=== PATIENT | female | born 1990 | race African-American/Black ===

== ENCOUNTER 2017-01-20 11:55 | Emergency (ER) | payer OTHER ==
--- NOTE | ~2017-01-20 | US106 ---
[facility] A Service of [facility] RADIOLOGY TEXT RESULTS PATIENT: GERONIMO WAN LOCATION: [facility] : [birth year] UNIT #: [id number] AGE: [address]: Kerrie Bustamante SEX: F ORDER DR: [id number] [facility] [address] [place], [place] [address] [id number] E MR#: [id number] Acc #: [id number] NAME: GERONIMO WAN : 1990 SEX: F STUDY DATE/TIME: 01/20/2017 14:52 UNIT: [facility] ROOM: STUDY DESCRIPTION: US Preg Uterus Transvaginal Attending Physician: Kerrie Bustamante P.A.-C. Ordering Physician: Kerrie Bustamante P.A.-C. Primary Care Physician: [facility] MEDICAL IMAGING REPORT This report is preliminary unless electronic signature is present EXAM Pelvic ultrasound, 01/20 HISTORY The patient is cramping with light spotting for the last four days. Positive test with beta hCG value of 1,326 mIU per mL. FINDINGS Transvaginal imaging was performed of the pelvis in multiple planes. No comparison. The endometrial stripe measures 12.0 mm. There is a tiny cystic lesion within it. This could reflect extremely early gestational sac. No yolk sac or pole identified. Both ovaries show perfusion by Doppler. Complex 1.5 cm lesion on the left ovary may reflect a corpus luteum. Bilateral ovarian follicles are present. IMPRESSION There is a tiny cystic lesion in the endometrial canal. It is unclear if this is a tiny gestational sac or not. It contains no yolk sac or pole. Mean sac diameter measurements would suggest a gestational age of 5 weeks if this is in fact a gestational sac. Both ovaries show perfusion by Doppler. Complex lesion on the left ovary could reflect a corpus luteum. No free fluid is seen. Dedicated obstetrical follow-up is recommended. Dictated by... Abilio Cardenas Jr., M.D. THIS IS AN ELECTRONICALLY VERIFIED REPORT Abilio Cardenas Jr., M.D. at 01/20/2017 8:49 PM CARLOS A/fam TD: 01/20/2017 16:19 [facility] A Service of [facility] RADIOLOGY TEXT RESULTS PATIENT: GERONIMO WAN LOCATION: [facility] #: [id number] : [birth year] UNIT #: [id number] AGE: [address]: Kerrie Bustamante SEX: F ORDER DR: RAMONE #: [id number] MEDICAL IMAGING REPORT Page 1 of 1 COPY
[~2017-01-20 11:55] MED LIST: ALBUTEROL17 GM; CODIENE; ROBITUSSIN
[2017-01-20 13:27] LABS: URINE SOURCE CLEAN CATCH
[2017-01-20 13:37] LABS: URINE APPEARANCE CLOUDY; URINE BILIRUBIN NEG (NEG); URINE BLOOD 3+ (NEG); URINE COLOR YELLOW; URINE GLUCOSE NEG (NEG); URINE KETONE NEG (NEG); URINE LEUKOCYTE ESTERASE 1+ (NEG); URINE NITRATE NEG (NEG); URINE PH 5.5 (5-8); URINE PROTEIN NEG (NEG); URINE SPECIFIC GRAVITY 1.024 (1.003-1.035); URINE UROBILINOGEN 0.2 MG/DL (NEG)
[2017-01-20 13:39] LABS: CULTURE INDICATED? YES; URINE BACTERIA AUWI 1+ (NEGATIVE); URINE SQUAMOUS EPITHELIAL CELL FEW /[HPF]
[2017-01-20 14:03] LABS: BASOPHIL# 0.1 X10e3 (0-0.3); BASOPHIL% 1.3 % (0-2.5); EOSINOPHIL% 0.7 % (0.0-7.0); HEMATOCRIT 35.1 % (35.0-45.0); HEMOGLOBIN 11.4 gm/dL (12.0-16.0); LYMPHOCYTE# 2.1 X10e3 (1.0-3.5); LYMPHOCYTE% 34.5 % (17.0-45.0); MEAN CELL VOLUME 93.8 FL (83-96); MEAN CORPUSCULAR HEMOGLOBIN 30.4 PG (28-34); MEAN CORPUSCULAR HGB CONC 32.4 g/dL (30-36); MEAN PLATELET VOLUME 7.5 FL (6.5-11.5); MONOCYTE# 0.5 X10e3 (0-1.0); MONOCYTE% 8.9 % (3.0-12.0); NEUTROPHIL# 3.3 X10e3 (1.5-7.1); NEUTROPHIL% 54.6 % (40-75); PLATELET COUNT 306 X10e3 (140-420); RED BLOOD COUNT 3.74 X10e (3.90-5.30)
[2017-01-20 14:06] LABS: DIFF IND NO
[2017-01-23 15:44] LABS: CHLAMYDIA TRACH Not Detected (Not Detected); N GONOR Not Detected (Not Detected)
== END 2017-01-20 16:06 | disposition home or self-care (01) ==
LOC: CED 11:55
PROVIDERS: Physician Assistant
DX: O20.0 Threatened abortion (principal); O23.11 Infections of bladder in pregnancy, first trimester; Z87.891 Personal history of nicotine dependence; Z3A.01 Less than 8 weeks gestation of pregnancy
CPT/HCPCS: 36415; 76817; 81003; 84702; 84703; 85025; 87086; 87491; 87591; 87808; 87905; 99284

== ENCOUNTER 2017-01-22 09:38 | Emergency (ER) | payer OTHER ==
--- NOTE | ~2017-01-22 | US61 ---
[facility] A Service of [facility] RADIOLOGY TEXT RESULTS PATIENT: GERONIMO WAN LOCATION: [facility] : 86 UNIT #: [id number] AGE: [address]: Juan Monzon SEX: F ORDER DR: [id number] [facility] [address] [place], [place] [address] [id number] E MR#: [id number] Acc #: [id number] NAME: GERONIMO WAN : 1990 SEX: F STUDY DATE/TIME: 01/22/2017 10:52 UNIT: [facility] ROOM: STUDY DESCRIPTION: US /Mat <14Wk / Attending Physician: Juan Monzon Ordering Physician: Juan Monzon Primary Care Physician: [facility] IMAGING REPORT This report is preliminary unless electronic signature is present EXAM Transabdominal and transvaginal pelvic ultrasound DATE 01/22/2017 HISTORY Pelvic cramping and bleeding since Saturday. Patient had pelvic ultrasound Saturday, but bleeding has gotten worse since then. Previous beta HCG Saturday 1326, but today's beta HCG is 415. COMPARISON Pelvic ultrasound 01/20/2017 FINDINGS Transabdominal imaging was performed for generalized visualization of pelvic structures while transvaginal imaging was performed for more detailed evaluation of the adnexa. The uterus is retroflexed. The uterus measures approximately 8.0 x 4.7 x 5.3 cm. Endometrial bilayer thickness varies between 4-7 mm, and is less thick than on the 01/20/2017 examination where the bilayer measured nearly 12 mm. The cystic structure previously documented within the upper endometrial canal is no longer present or has collapsed. Tiny cervical nabothian cyst is incidentally noted. There is a tiny eccentric fluid or cystic lesion within the lower endometrial canal eccentrically measuring nearly 3 x 1 mm, smaller than on the previous exam. No myometrial abnormality is identified. Right ovary measures 3.4 x 1.8 x 3.3 cm with a few eccentric small [facility] A Service [facility] RADIOLOGY TEXT RESULTS PATIENT: GERONIMO WAN LOCATION: [facility] : 86 UNIT #: [id number] AGE: [address]: Juan Monzon SEX: F ORDER DR: follicles but no dominant cystic or solid lesion is identified. The right ovary demonstrates normal color and spectral Doppler flow. The left ovary measures 4.1 x 2.4 x 3.7 cm, it contains an eccentric hypoechoic solid or complex cystic component measuring 1.1 x 1.5 x 0.9 cm, smaller than on the previous study where it measured 1.4 x 1.5 x 0.8 cm. No vascular flow is seen within this solid or complex cystic component. What appears to be a small amount of loculated free fluid is demonstrated within the right adnexal region inferiorly, new since the previous examination. IMPRESSION 1. Tiny cystic focus in the endometrial canal on the previous study is no other present. There is only tiny pancake shaped cystic flow of focus in the eccentric lower uterine endometrial segment, and the endometrial bilayer thickness has significantly diminished. Constellation of findings, including the provided history of diminishing beta HCG levels, would suggest spontaneous in progress. 2. There is a new small quantity of loculated fluid within the right adnexal region inferiorly, but no extrauterine gestational sac is seen. 3. Hypoechoic structure within the left ovary measures about 11 mm compared to 15 mm on the previous examination, and could represent an involuting corpus luteum. 4. Flow is documented to each ovary. Dictated by... Irma Telles M.D. THIS IS AN ELECTRONICALLY VERIFIED REPORT Irma Telles M.D. at 01/22/2017 5:00 PM [facility]/dominique TD: 01/22/2017 13:18 JOB #: [id number] MEDICAL IMAGING REPORT Page 1 of 1 COPY
[2017-01-22 10:34] LABS: URINE SOURCE CLEAN CATCH
[2017-01-22 10:40] LABS: BASOPHIL# 0.1 X10e3 (0-0.3); DIFF IND NO; EOSINOPHIL% 0.1 % (0.0-7.0); HEMATOCRIT 36.1 % (35.0-45.0); HEMOGLOBIN 11.5 gm/dL (12.0-16.0); LYMPHOCYTE# 1.5 X10e3 (1.0-3.5); LYMPHOCYTE% 22.1 % (17.0-45.0); MEAN CELL VOLUME 95.1 FL (83-96); MEAN CORPUSCULAR HEMOGLOBIN 30.4 PG (28-34); MEAN PLATELET VOLUME 7.6 FL (6.5-11.5); MONOCYTE# 0.4 X10e3 (0-1.0); MONOCYTE% 5.7 % (3.0-12.0); NEUTROPHIL# 4.8 X10e3 (1.5-7.1); NEUTROPHIL% 71.1 % (40-75); PLATELET COUNT 328 X10e3 (140-420); RED BLOOD COUNT 3.79 X10e (3.90-5.30); RED CELL DISTRIBUTION WIDTH 15.9 % (11.0-15.5); WHITE BLOOD COUNT 6.8 X10e3 (4.0-10.5)
[2017-01-22 10:41] LABS: URINE APPEARANCE CLEAR; URINE BILIRUBIN NEG (NEG); URINE BLOOD 3+ (NEG); URINE COLOR YELLOW; URINE GLUCOSE NEG (NEG); URINE KETONE TRACE (NEG); URINE LEUKOCYTE ESTERASE NEG (NEG); URINE NITRATE NEG (NEG); URINE PH 5.5 (5-8); URINE PROTEIN NEG (NEG); URINE SPECIFIC GRAVITY 1.016 (1.003-1.035)
[2017-01-22 10:45] LABS: URBCS1 AUWI INNUM /[HPF] (0-2); URINE BACTERIA AUWI NEG (NEGATIVE); URINE SQUAMOUS EPITHELIAL CELL NONE SEEN /[HPF]; UWBCS1 AUWI 0-2 (0-5)
[2017-01-22 10:48] LABS: CULTURE INDICATED? NO
[2017-01-22 11:18] LABS: ALBUMIN SERUM 4.4 g/dL (3.5-5.0); BILIRUBIN,TOTAL 1.5 mg/dL (0.2-2.0); CALCIUM SERUM 9.3 mg/dL (8.4-10.2); CREATININE SERUM 0.7 mg/dL (0.6-1.4); GLOM FILT RATE Estimated 136.7 mL/min (>60); POTASSIUM 3.3 mmol/L (3.5-5.1); PROTEIN TOTAL SERUM 7.8 g/dL (6.0-8.3)
== END 2017-01-22 12:20 | disposition home or self-care (01) ==
LOC: CED 09:38 → CFTX 09:38
PROVIDERS: Nurse Practitioner
DX: O20.0 Threatened abortion (principal); O99.281 Endocrine, nutritional and metabolic diseases complicating pregnancy, first trimester; O99.011 Anemia complicating pregnancy, first trimester; E87.6 Hypokalemia; D64.9 Anemia, unspecified; Z87.440 Personal history of urinary (tract) infections
CPT/HCPCS: 76801; 80053; 81003; 84702; 84703; 85025; 99284